=== PATIENT | female | born 1995 | race Caucasian/White ===

== ENCOUNTER 2018-06-04 12:46 | Emergency (ER) | payer SELFPAY ==
[~2018-06-04] VITALS: Ht 167.6 cm; Wt 52.0 kg
[2018-06-04] MEDS ORDERED: TRAMADOL 50MG TABLET PO ONE (15:00)
[2018-06-04] MEDS ORDERED: ONDANSETRON 4MG ODT PO ONE (15:00)
[2018-06-04 15:36] VITALS: BP 99/58
== END 2018-06-04 16:44 | disposition left against medical advice (07) ==
LOC: ER 12:46
DX: R51 Headache (principal); I10 Essential (primary) hypertension
CPT/HCPCS: 99283; Q0162